=== PATIENT | female | born 1985 | race Two or more races ===

== ENCOUNTER 2020-09-16 10:51 | Observation (INO) | payer MEDICAID ==
[~2020-09-16] VITALS: Ht 129.5 cm; Wt 68.9 kg
== END 2020-09-16 12:44 | disposition home or self-care (01) ==
LOC: LDRP 10:51
PROVIDERS: ADMIT Obstetrics & Gynecology; ATTEND Obstetrics & Gynecology
DX: O98.519 Other viral diseases complicating pregnancy, unspecified trimester (principal); U07.1 COVID-19; Z3A.00 Weeks of gestation of pregnancy not specified
CPT/HCPCS: 36415; 59025; 81002; 87426; G0378

== ENCOUNTER 2020-09-24 12:58 | Observation (INO) | payer MEDICAID ==
[2020-09-24] MEDS ORDERED: PREN-96 PO (13:40)
== END 2020-09-24 16:37 | disposition home or self-care (01) ==
LOC: LDRP 12:58
PROVIDERS: ADMIT Obstetrics & Gynecology; ATTEND Obstetrics & Gynecology
DX: U07.1 COVID-19 (principal); O60.03 Preterm labor without delivery, third trimester; Z3A.34 34 weeks gestation of pregnancy
CPT/HCPCS: 59025; 76818; 81002; G0378

== ENCOUNTER 2020-10-01 15:49 | Observation (INO) | payer MEDICAID ==
[~2020-10-01 15:49] MED LIST: PREN-96 PO
[2020-10-01] MEDS ORDERED: PREN-129 OR (18:48)
== END 2020-10-01 18:55 | disposition home or self-care (01) ==
LOC: LDRP 15:49
PROVIDERS: ADMIT Obstetrics & Gynecology; ATTEND Obstetrics & Gynecology
DX: O98.513 Other viral diseases complicating pregnancy, third trimester (principal); U07.1 COVID-19; Z3A.35 35 weeks gestation of pregnancy
CPT/HCPCS: 59025; 76818; 81002; G0378; U0003

== ENCOUNTER 2020-10-22 16:55 | Inpatient (IN) | payer MEDICAID ==
[2020-10-22] VITALS (8 sets, daily range): BP systolic 110–132; BP diastolic 50–79
[~2020-10-22] VITALS: Ht 149.9 cm; Wt 73.5 kg
[~2020-10-22 16:55] MED LIST changes: +PREN-129 OR
[2020-10-22] MEDS ORDERED: LACTATED RINGER'S 1,000 ML IV SCH (17:15)
[2020-10-22] MEDS ORDERED: LACTATED RINGER'S 1,000 ML IV ONE (17:15)
[2020-10-22] MEDS ORDERED: ceFAZolin 1GM/50ML 50 ML IV ONE (17:15)
[2020-10-22 17:39] LABS: Basophils # (auto) 0 10 ^3/uL (0-0.2); Basophils % (auto) 0.3 % (0.0-2.0); Eosinophils # (auto) 0.1 10 ^3/uL (0-0.8); Eosinophils % (auto) 0.7 % (0.0-7.0); Hematocrit 38.2 % (36.0-46.0); Hemoglobin 12.9 g/dL (12.2-16.2); Lymphocytes # (auto) 2.1 10 ^3/uL (0.4-5.4); Mean Corpuscular Hemoglobin 30.6 pg (28.0-32.0); Mean Corpuscular Hgb Conc. 33.7 g/dL (32.0-36.0); Mean Corpuscular Volume 90.9 fL (80.0-100.0); Monocytes # (auto) 0.5 10 ^3/uL (0-1.3); Monocytes % (auto) 5.6 % (0.0-12.0); Neutrophils # (auto) 5.6 10 ^3/uL (1.6-8.6); Neutrophils % (auto) 67.4 % (37.0-80.0); Nucleated Red Blood Cells % 0.1 %; Platelet Count (auto) 249 10^3/uL (140-450); Red Cell Distribution Width 15.5 % (11.8-14.3); White Blood Cell 8.3 10^3/uL (4.4-10.8)
[2020-10-22] MEDS ORDERED: EPINEPHrine HCL 1 MG/1 ML AMP ONE (17:40)
[2020-10-22] MEDS ORDERED: fentaNYL CITRATE 100 MCG/2 ML VL ONE (17:40)
[2020-10-22] MEDS ORDERED: MORPHINE SULF(PF) 0.5MG/ML 10ML VIAL ONE (17:40)
[2020-10-22] MEDS ORDERED: ONDANSETRON HCL 4 MG/2 ML VIAL ONE (17:40)
[2020-10-22] MEDS ORDERED: MIDAZOLAM HCL 1MG/1ML-2 ML VIAL ONE (17:40)
[2020-10-22] MEDS ORDERED: BUPIVACAINE/DEXTROSE MPF 0.75% 2 ML AMP IT ONE (17:40)
[2020-10-22] MEDS ORDERED: SODIUM CHLORIDE LOCK 10 ML ONE (17:40)
[2020-10-22] MEDS ORDERED: oxyTOCIN 10 UNIT/ML 10ML VIAL ONE (17:40)
[2020-10-22] MEDS ORDERED: TETRACAINE 1% INJ 2 ML VIAL IJ ONE (17:43)
[2020-10-22 17:55] LABS: INR 0.87 (0.9-1.15); Partial Thromboplastin Time 25.1 sec (23.0-31.2)
[2020-10-22 17:56] LABS: Albumin 2.7 g/dL (3.4-5.0); BUN/Creatinine Ratio 9.8; Calcium 8.9 mg/dL (8.5-10.1); Potassium 3.8 mmol/L (3.5-5.1)
[2020-10-22 17:59] LABS: Bilirubin, Total 0.2 mg/dL (0.2-1.0); Total Protein 7.2 g/dL (6.4-8.2)
[2020-10-22 18:10] LABS: Urine Bacteria FEW /hpf (None Seen); Urine Blood 3+ /uL (Negative); Urine Specific Gravity 1.004 (1.001-1.035); Urine WBC 15 /hpf (0 - 5)
[2020-10-22 18:14] LABS: Alcohol, Urine < 3.0 mg/dL (0-10); Amphetamine Screen, Urine NEGATIVE (NEGATIVE); Barbiturate Scree,Urine NEGATIVE (NEGATIVE); Benzodiazephine Screen, Urine NEGATIVE (NEGATIVE); Cannabinoid Screen, Urine NEGATIVE (NEGATIVE); Cocaine Screen, Urine NEGATIVE (NEGATIVE); Opiate Scree,Urine NEGATIVE (NEGATIVE); Phencyclidine Screen, Urine NEGATIVE (NEGATIVE)
[2020-10-22] MEDS ORDERED: KETAMINE HCL 10 ML ONE (18:15)
[2020-10-22] MEDS ORDERED: MORPHINE SULF INJ 2 MG/ML SYRINGE 1ML IV PRN ×2 (19:00→21:45)
[2020-10-22] MEDS ORDERED: LACT. RINGERS/OXYTOCIN 20UNITS 1,000 ML IV ONE (19:00)
[2020-10-22] MEDS ORDERED: ONDANSETRON HCL 4 MG/2 ML VIAL IV PRN ×2 (19:00→19:15)
[2020-10-22] MEDS ORDERED: ceFAZolin 1GM/50ML 50 ML IV SCH (19:00)
[2020-10-22] MEDS ORDERED: NALOXONE HCL 0.4 MG/ML VIAL IV PRN (19:15)
[2020-10-22] MEDS ORDERED: MORPHINE SULFATE 4 MG/ML SYR/VIAL IV PRN (19:15)
[2020-10-22] MEDS ORDERED: diphenhdrAMINE HCL 50 MG/1 ML VL IV PRN (19:15)
[2020-10-22] MEDS ORDERED: HYDROmorphone HCL 2 MG/ML VL IV PRN ×2 (19:15→21:45)
[2020-10-22] MEDS ORDERED: ACETAMINOPHEN IV 1000 MG/100ML (10MG/ML) IV PRN (21:45)
[2020-10-22 22:39] LABS: Basophils # (auto) 0 10 ^3/uL (0-0.2); Basophils % (auto) 0.1 % (0.0-2.0); Eosinophils # (auto) 0 10 ^3/uL (0-0.8); Hematocrit 36.1 % (36.0-46.0); Hemoglobin 12.2 g/dL (12.2-16.2); Lymphocytes # (auto) 0.8 10 ^3/uL (0.4-5.4); Lymphocytes % (auto) 4.5 % (10.0-50.0); Mean Corpuscular Hemoglobin 30.7 pg (28.0-32.0); Mean Corpuscular Hgb Conc. 33.7 g/dL (32.0-36.0); Mean Corpuscular Volume 91.1 fL (80.0-100.0); Monocytes # (auto) 0.3 10 ^3/uL (0-1.3); Monocytes % (auto) 1.7 % (0.0-12.0); Neutrophils # (auto) 15.9 10 ^3/uL (1.6-8.6); Neutrophils % (auto) 93.7 % (37.0-80.0); Platelet Count (auto) 237 10^3/uL (140-450); Red Blood Cells 3.96 10^6/uL (4.0-5.20); Red Cell Distribution Width 15.4 % (11.8-14.3)
[2020-10-23] VITALS (19 sets, daily range): BP systolic 95–126; BP diastolic 55–95
[2020-10-23] MEDS ORDERED: ceFAZolin 1GM/50ML 50 ML IV SCH ×3 (02:00→10:00)
[2020-10-23 07:06] LABS: RPR Non Reactive (Non Reactive)
[2020-10-23 07:38] LABS: Basophils # (auto) 0.1 10 ^3/uL (0-0.2); Basophils % (auto) 0.4 % (0.0-2.0); Eosinophils # (auto) 0 10 ^3/uL (0-0.8); Hematocrit 33.4 % (36.0-46.0); Hemoglobin 11.5 g/dL (12.2-16.2); Lymphocytes # (auto) 1.6 10 ^3/uL (0.4-5.4); Mean Corpuscular Hemoglobin 31.4 pg (28.0-32.0); Mean Corpuscular Hgb Conc. 34.4 g/dL (32.0-36.0); Mean Corpuscular Volume 91.1 fL (80.0-100.0); Monocytes # (auto) 0.8 10 ^3/uL (0-1.3); Monocytes % (auto) 5.6 % (0.0-12.0); Neutrophils # (auto) 11.2 10 ^3/uL (1.6-8.6); Platelet Count (auto) 230 10^3/uL (140-450); Red Blood Cells 3.67 10^6/uL (4.0-5.20); Red Cell Distribution Width 15.4 % (11.8-14.3); White Blood Cell 13.6 10^3/uL (4.4-10.8)
[2020-10-23] MEDS ORDERED: BISACODYL 10 MG RECT SUPP PR PRN (16:30)
[2020-10-23] MEDS ORDERED: HYDROcodone-ACET 5/325MG TAB PO PRN ×2 (16:30)
[2020-10-23] MEDS: IBUPROFEN 800 MG TAB PO PRN (17:27)
[2020-10-23] MEDS: ceFAZolin 1GM/50ML 50 ML IV SCH (17:44)
[2020-10-23] MEDS: SIMETHICONE 80 MG CHEWABLE TABLET PO SCH ×2 (19:34→21:43)
[2020-10-23] MEDS: DOCUSATE SOD 100 MG CAP PO SCH (21:42)
[2020-10-24] MEDS: ceFAZolin 1GM/50ML 50 ML IV SCH ×2 (01:14→09:58)
[2020-10-24 03:00] VITALS: BP 105/68
[2020-10-24] MEDS: IBUPROFEN 800 MG TAB PO PRN ×2 (05:33→14:55)
[2020-10-24] MEDS: SIMETHICONE 80 MG CHEWABLE TABLET PO SCH ×4 (05:33→22:23)
[2020-10-24 07:27] VITALS: BP 109/75
[2020-10-24] MEDS: DOCUSATE SOD 100 MG CAP PO SCH ×2 (09:58→22:23)
[2020-10-24 11:28] VITALS: BP 110/62
[2020-10-24 14:54] VITALS: BP 130/83
[2020-10-24 18:50] VITALS: BP 116/81
[2020-10-24 23:20] VITALS: BP 110/71
[2020-10-25] MEDS: IBUPROFEN 800 MG TAB PO PRN (01:04)
[2020-10-25 03:25] VITALS: BP 117/73
[2020-10-25] MEDS: SIMETHICONE 80 MG CHEWABLE TABLET PO SCH (07:09)
[2020-10-25 07:30] VITALS: BP 119/72
== END 2020-10-25 10:50 | disposition home or self-care (01) | DRG 540 ==
LOC: LDRP 16:55
PROVIDERS: ADMIT Obstetrics & Gynecology; ATTEND Obstetrics & Gynecology
PROC: 10D00Z1 Extraction of Products of Conception, Low, Open Approach (ICD-10-PCS; principal; 2020-10-22 17:55)
DX: O41.03X0 Oligohydramnios, third trimester, not applicable or unspecified (principal); O98.52 Other viral diseases complicating childbirth; O34.211 Maternal care for low transverse scar from previous cesarean delivery; U07.1 COVID-19; Z3A.38 38 weeks gestation of pregnancy; Z37.0 Single live birth; Z90.49 Acquired absence of other specified parts of digestive tract; O99.214 Obesity complicating childbirth; E66.9 Obesity, unspecified
CPT/HCPCS: 36415; 59025; 80053; 80307; 81001; 85025; 85610; 85730; 86592; 86850; 86900; 86901; 87426; 94762; 96360; 96361; 96365; G0378; J0131; J0171; J0690; J2250; J2405; J2590